=== PATIENT | male | born 1985 | race Two or more races ===

== ENCOUNTER 2017-09-23 15:38 | Emergency (ER) | payer SELFPAY ==
[2017-09-23] MEDS: DIPHTH,PERTUSS(ACELL),TET TOX 0.5 ML DISP.SYRIN. VAX IM (16:05)
== END 2017-09-23 16:18 | disposition home or self-care (01) ==
LOC: ER 15:38
DX: L60.0 Ingrowing nail (principal)
CPT/HCPCS: 90471; 90715; 99283